=== PATIENT | male | born 1980 | race Two or more races ===

== ENCOUNTER 2021-03-18 11:50 | Outpatient (REF) | payer SELFPAY ==
[2021-03-18 15:01] LABS: COVID-19 Test Positive (Negative); IDNOW Serial# 55D5AD1C
== END 2021-03-18 11:51 | disposition home or self-care (01) ==
LOC: HO.LAB 11:50
PROVIDERS: Visit Provider Internal Medicine
DX: Z20.822 Contact with and (suspected) exposure to COVID-19 (principal)
CPT/HCPCS: 36415; 87635; C9803